=== PATIENT | female | born 1970 | race Two or more races ===

== ENCOUNTER 2019-08-02 08:35 | Emergency (ER) | payer MEDICAID ==
[~2019-08-02] VITALS: Ht 167.6 cm; Wt 81.6 kg
--- NOTE | 2019-08-02 08:42 | NUR ---
BIB SELF C/O COUGH AND CONGESTION, FEVER FOR 5 DAYS, +R EAR PAIN, CHEST AND BACK PAIN. TO ER BED 10, HOOKED TO MONITOR. AWAITING FOR EVAL
--- NOTE | 2019-08-02 08:47 | NUR ---
DR MEREDITH AT BEDSIDE
[2019-08-02] MEDS ORDERED: ACETAMINOPHEN ES 500 MG TABLET ONE (08:50)
[2019-08-02] MEDS ORDERED: ACETAMINOPHEN ES 500 MG TABLET PO ONE (09:00)
--- NOTE | 2019-08-02 09:43 | NUR ---
Patient discharged to home in stable condition. Written and verbal after care instructions given. Patient verbalizes understanding of instruction.
[2019-08-02 09:44] VITALS: BP 132/84
== END 2019-08-02 09:44 | disposition home or self-care (01) ==
LOC: ER 08:37
DX: J20.9 Acute bronchitis, unspecified (principal); E11.9 Type 2 diabetes mellitus without complications
CPT/HCPCS: 71045-TC

== ENCOUNTER 2020-07-07 09:12 | Emergency (ER) | payer MEDICAID ==
[~2020-07-07] VITALS: Ht 152.4 cm; Wt 81.6 kg
[2020-07-07 09:47] VITALS: BP 156/86
== END 2020-07-07 10:00 | disposition home or self-care (01) ==
LOC: ER 09:13
DX: U07.1 COVID-19 (principal); E11.9 Type 2 diabetes mellitus without complications; Z79.4 Long term (current) use of insulin

== ENCOUNTER 2021-12-18 11:39 | Emergency (ER) | payer MEDICAID, OTHER ==
[~2021-12-18] VITALS: Ht 162.6 cm; Wt 88.5 kg
[2021-12-18 11:58] VITALS: BP 164/91
--- NOTE | 2021-12-18 11:58 | NUR ---
bibs c/o R foot pain s/p fall last night 10 ps
--- NOTE | 2021-12-18 13:01 | NUR ---
Patient discharged to home in stable condition. Written and verbal after care instructions given. Patient verbalizes understanding of instruction.
== END 2021-12-18 13:00 | disposition home or self-care (01) ==
LOC: ER 11:39
DX: M79.674 Pain in right toe(s) (principal); E11.9 Type 2 diabetes mellitus without complications
CPT/HCPCS: 73660-TC